=== PATIENT | female | born 1990 | race Caucasian/White ===

== ENCOUNTER 2017-10-10 09:37 | Emergency (ER) | payer BC ==
[~2017-10-10] VITALS: Ht 167.6 cm; Wt 77.4 kg
[2017-10-10 11:14] LABS: HEMATOCRIT 43.1 % (36.0-46.0); HEMOGLOBIN 14.5 G/DL (11.9-15.5); MCH 29.8 PG (29.0-34.0); MCHC 33.6 G/DL (30.0-36.0); MCV 88.5 FL (83-99); PLATELET COUNT 287 K/uL (156-360); RBC DIS.WIDTH-CV 13.2 % (11.8-14.6); RED BLOOD COUNT 4.87 M/uL (3.80-5.20); WHITE BLOOD COUNT 10.1 K/uL (4.1-10.2)
[2017-10-10 11:24] LABS: CHLORIDE 107 mEq/L (99-109); POTASSIUM 4.4 mEq/L (3.7-5.4); SODIUM 138 mEq/L (136-147)
[2017-10-10 11:27] LABS: GLUCOSE 85 mg/dL (70-99); TOTAL PROTEIN 6.6 g/dL (6.4-8.3)
[2017-10-10 11:29] LABS: TOTAL BILIRUBIN 0.5 mg/dL (0.0-1.0)
[2017-10-10 11:30] LABS: ALKALINE PHOSPHATASE 68 IU/L (3-129); CREATININE 0.7 mg/dL (0.6-1.3); GFR ESTIMATE (CALCULATED) > 59 mL/min/
[2017-10-10 11:31] LABS: UREA NITROGEN (BUN) 9 mg/dL (9-23)
[2017-10-10 11:32] LABS: AST (GOT) 13 IU/L (2-34)
[2017-10-10 11:33] LABS: ALT (GPT) 10 IU/L (3-49)
[2017-10-10 11:40] LABS: QUANTITATIVE HCG < 4.0 MIU/ML
[2017-10-10] MEDS ORDERED: NAPROSYN500 MG PO (16:06)
[2017-10-10 16:25] VITALS: BP 115/81
== END 2017-10-10 16:29 | disposition home or self-care (01) ==
LOC: EME 09:37
PROVIDERS: Nurse Practitioner Family
DX: G43.009 Migraine without aura, not intractable, without status migrainosus (principal); R55 Syncope and collapse; F07.81 Postconcussional syndrome; H93.19 Tinnitus, unspecified ear; M43.6 Torticollis; F17.200 Nicotine dependence, unspecified, uncomplicated
CPT/HCPCS: 70496; 70498; 80053; 81003; 84702; 85027; 93005; 99281; 99285; J7030